=== PATIENT | male | born 1990 | race African-American/Black ===

== ENCOUNTER 2019-12-14 03:48 | Inpatient (IN) | payer SELFPAY ==
[~2019-12-14] VITALS: Ht 182.9 cm; Wt 72.6 kg
[2019-12-14] MEDS ORDERED: ONDANSETRON HCL 4MG/2ML INJ IV STA (04:31)
[2019-12-14] MEDS ORDERED: SODIUM CHLORIDE 0.9% 1,000 ML IV ONE ×2 (04:31)
[2019-12-14] MEDS ORDERED: MORPHINE SULFATE 4 MG/ML CPJ (NOT FOR IM USE) IV STA (04:31)
[2019-12-14] MEDS ORDERED: CLINDAMYCIN 600 MG in DEXTROSE 5% WATER 50 ML IV ONE (04:45)
[2019-12-14 04:59] LABS: BASOPHILS % 0.4 % (0.0-2.0); EOSINOPHILS % 2.8 % (0.0-5.0); HEMATOCRIT. 42.5 % (42.0-52.0); HEMOGLOBIN. 14.3 g/dL (14.0-18.0); LYMPHOCYTES % 10.9 % (20.0-50.0); MEAN CORPUSCULAR HEMOGLOBIN 30.1 pg (28.0-32.0); MEAN CORPUSCULAR VOLUME 89.3 fL (80.0-94.0); MONOCYTES % 9.6 % (2.0-8.0); NEUTROPHILS % 76.3 % (40.0-76.0); PLATELET 230 x1000/uL (130-400); RED BLOOD CELL COUNT 4.76 mill/uL (4.7-6.1); RED CELL DISTRIBUTION WIDTH 14.4 % (11.6-14.6)
[2019-12-14] MEDS ORDERED: CLINDAMYCIN 600 MG in SODIUM CHLORIDE 0.9% 50 ML IV NR (05:00)
[2019-12-14 05:08] LABS: CHLORIDE 103 mEq/L (98-107)
[2019-12-14] MEDS ORDERED: IOHEXOL-300 100 ML BOTTLE ONE (06:59)
[2019-12-14 11:00] VITALS: BP 122/72
[2019-12-14 11:30] VITALS: BP 122/72
[2019-12-14] MEDS ORDERED: CEFTRIAXONE 2 G PREMIX 50 ML IV SCH (13:45)
[2019-12-14] MEDS ORDERED: MORPHINE SULFATE 2 MG/ML CPJ (NOT FOR IM USE) IV NR (13:45)
[2019-12-14] MEDS ORDERED: IPRATROPIUM/ALBUTEROL 0.5-3(2.5)MG/3ML NEB HHN PRN (13:45)
[2019-12-14] MEDS ORDERED: POTASSIUM CHLORIDE INJ 40 MEQ in DEXT 5% WATER 250 ML IV SCH (15:00)
[2019-12-14 16:00] VITALS: BP 127/70
[2019-12-14] MEDS ORDERED: DIPHENHYDRAMINE 50MG/ML VIAL IV PRN (16:30)
[2019-12-14] MEDS ORDERED: ONDANSETRON HCL 4MG/2ML INJ IV PRN (16:30)
[2019-12-14] MEDS ORDERED: ACETAMINOPHEN 650MG/20.3ML UDC PO PRN (16:30)
[2019-12-14] MEDS ORDERED: ACETAMINOPHEN WITH CODEINE 300/30MG TABLET PO PRN (16:30)
[2019-12-14] MEDS: SODIUM CHLORIDE 0.9% 1,000 ML IV SCH (17:08)
[2019-12-14] MEDS: CEFTRIAXONE 2 G in DEXTROSE 5% WATER 50 ML IV SCH (17:08)
[2019-12-14] MEDS ORDERED: THROAT LOZENGES-BENZOCAINE/MENTH/CETYLPYRD CL LOZENGES MM PRN (18:00)
[2019-12-14 20:40] VITALS: BP 122/68
[2019-12-15] VITALS: BP 110/88
[2019-12-15] MEDS: SODIUM CHLORIDE 0.9% 1,000 ML IV SCH ×3 (02:19→22:30)
[2019-12-15 04:00] VITALS: BP 118/65
[2019-12-15 08:00] VITALS: BP 100/70
[2019-12-15 12:00] VITALS: BP 97/61
[2019-12-15 16:00] VITALS: BP 100/60
[2019-12-15] MEDS: CEFTRIAXONE 2 G in DEXTROSE 5% WATER 50 ML IV SCH (16:49)
[2019-12-15 20:00] VITALS: BP 146/62
[2019-12-16] VITALS: BP 144/53
[2019-12-16 04:00] VITALS: BP 132/65
[2019-12-16 07:37] LABS: CHLORIDE 107 mEq/L (98-107)
[2019-12-16 07:41] LABS: BASOPHILS % 0.6 % (0.0-2.0); EOSINOPHILS % 7.7 % (0.0-5.0); HEMATOCRIT. 41.5 % (42.0-52.0); HEMOGLOBIN. 14.6 g/dL (14.0-18.0); LYMPHOCYTES % 27.8 % (20.0-50.0); MEAN CORPUSCULAR HEMOGLOBIN 31.3 pg (28.0-32.0); MEAN CORPUSCULAR VOLUME 89.1 fL (80.0-94.0); MEAN PLATELET VOLUME 9.1 fl (7.4-10.4); NEUTROPHILS % 53.9 % (40.0-76.0); PLATELET 229 x1000/uL (130-400); RED BLOOD CELL COUNT 4.66 mill/uL (4.7-6.1); RED CELL DISTRIBUTION WIDTH 14.5 % (11.6-14.6)
[2019-12-16 08:00] VITALS: BP 106/66
[2019-12-16 12:00] VITALS: BP 133/65
[2019-12-16 13:44] LABS: *AMPHETAMINES SCREEN URINE NEGATIVE (NEGATIVE); *BARBITURATES SCREEN URINE NEGATIVE (NEGATIVE); *BENZODIAZEPINES SCREEN URINE NEGATIVE (NEGATIVE)
[2019-12-16 13:45] LABS: *COCAINE SCREEN URINE PRESUMTIVE POSITIVE (NEGATIVE); CANNABINOID URINE SCREEN PRESUMTIVE POSITIVE (NEGATIVE); METHADONE URINE SCREEN NEGATIVE (NEGATIVE); OPIATES URINE SCREEN PRESUMTIVE POSITIVE (NEGATIVE); PHENCYCLIDINE URINE SCREEN NEGATIVE (NEGATIVE)
[2019-12-16 16:00] VITALS: BP 123/50
[2019-12-16] MEDS: CEFTRIAXONE 2 G in DEXTROSE 5% WATER 50 ML IV SCH (16:00)
[2019-12-16 16:19] VITALS: BP 123/50
== END 2019-12-16 16:41 | disposition home or self-care (01) | DRG 720 ==
LOC: ER 03:48 → 6WST 06:59 → EDBEDREQ 07:01 → EDBEDREQTM 07:01 → ENRESERV 10:05 → 6EST 12-15 13:52
PROVIDERS: ADMIT Internal Medicine; ATTEND Internal Medicine
DX: A41.9 Sepsis, unspecified organism (principal); F12.90 Cannabis use, unspecified, uncomplicated; F14.10 Cocaine abuse, uncomplicated; F17.200 Nicotine dependence, unspecified, uncomplicated; J45.909 Unspecified asthma, uncomplicated; F17.210 Nicotine dependence, cigarettes, uncomplicated; J03.90 Acute tonsillitis, unspecified; R63.3 Feeding difficulties; Z59.0 Homelessness; Z79.899 Other long term (current) drug therapy
CPT/HCPCS: 36415; 70487; 71045; 80048; 80053; 80305; 83605; 83735; 85025; 87070; 87430; 96365; 96375; 96376; 97161; 99285; J0696; J2270; J2405; J3480; J3490; J7030; J7060; J7620; Q9967

== ENCOUNTER 2019-12-24 03:01 | Emergency (ER) | payer SELFPAY ==
[~2019-12-24] VITALS: Ht 188 cm; Wt 73.0 kg
[2019-12-24] MEDS ORDERED: SODIUM CHLORIDE 0.9% 1,000 ML IV ONE (04:01)
[2019-12-24] MEDS ORDERED: CLINDAMYCIN 600 MG in SODIUM CHLORIDE 0.9% 50 ML IV NR (04:15)
[2019-12-24] MEDS ORDERED: KETOROLAC 15MG/ML VIAL IV ONE (04:15)
[2019-12-24] MEDS ORDERED: CLINDAMYCIN 600 MG in DEXTROSE 5% WATER 50 ML IV ONE (04:15)
[2019-12-24] MEDS ORDERED: DEXAMETHASONE 4MG/ML 1ML VIAL IV ONE (04:15)
[2019-12-24 06:10] VITALS: BP 125/81
== END 2019-12-24 06:12 | disposition home or self-care (01) ==
LOC: ER 03:01
DX: J02.9 Acute pharyngitis, unspecified (principal); J45.909 Unspecified asthma, uncomplicated; F17.200 Nicotine dependence, unspecified, uncomplicated
CPT/HCPCS: 96365; 96375; 99283; J1100; J1885; J3490; J7030; J7060